=== PATIENT | male | born 1990 | race Two or more races ===

== ENCOUNTER 2019-01-28 14:06 | Emergency (ER) | payer SELFPAY ==
[~2019-01-28] VITALS: Ht 177.8 cm; Wt 83.9 kg
[2019-01-28 14:23] VITALS: BP 116/89
--- NOTE | 2019-01-28 14:23 | NUR ---
ED Nurse Note: Pt BIB by ambulance d/t ETOH
[2019-01-28 14:51] LABS: APPEARANCE,URINE CLEAR; BILIRUBIN, URINE NEGATIVE (NEGATIVE); COLOR,URINE PALE YELLOW; GLUCOSE, URINE (UA) NEGATIVE (NEGATIVE); KETONES,URINE NEGATIVE (NEGATIVE); LEUKOCYTE ESTERASE ,URINE NEGATIVE (NEGATIVE); NITRITE,URINE NEGATIVE (NEGATIVE); PH,URINE 6.5 (4.5-8.0); PROTEIN,URINE NEGATIVE (NEGATIVE); UROBILINOGEN,URINE NORMAL MG/DL (0.0-1.0)
--- NOTE | 2019-01-28 14:59 | NUR ---
ED Nurse Note: PA at bedside; pt refused IV insertion at this time. Pt uncooperative, CT on hold.
--- NOTE | 2019-01-28 15:45 | NUR ---
ED Nurse Note: Pt refused care, walked out of ED, security ran after patient but was unable to bring back.
--- NOTE | 2019-01-28 21:31 | Emergency Room Report ---
History of Present Illness General Chief Complaint: Alcohol Intoxication Source: Medical Record Present Illness HPI 28-year-old male brought in by paramedics due to alcohol intoxication. Patient is walking the hallway and does not cooperate with the staff. Patient appears intoxicated and under the influence of an unknown substance. However has stable vital signs. Patient refuses all treatment and is not a good historian to reply to any questions. Urine sample was positive for benzodiazepines. Patient keeps wandering the hallways and eloped. Had a facial contusion noted in the right maxilla however did not cooperate with the radiology staff in order to do the facial CT scan. Allergies: Coded Allergies: No Known Allergies (Unverified , 01/28/19) Patient History Past Medical History: see triage record Past Surgical History: unable to obtain Pertinent Family History: unable to obtain Reviewed Nursing Documentation: PMH: Agreed; PSxH: Agreed Nursing Documentation-PMH Past Medical History: No Stated History Review of Systems All Other Systems: negative except mentioned in HPI Physical Exam Vital Signs Date Time Temp Pulse Resp B/P (MAP) Pulse Ox O2 Delivery O2 Flow Rate FiO2 01/28/19 14:07 103 16 116/89 (98) 100 Room Air 01/28/19 14:23 98.0 Sp02 EP Interpretation: reviewed, normal General Appearance: moderate distress Head: normocephalic, atraumatic Eyes: bilateral eye normal inspection, bilateral eye PERRL Neck: normal inspection, full range of motion, supple Respiratory: normal inspection, chest non-tender, lungs clear, no wheezing Cardiovascular #1: normal inspection, regular rate, rhythm, no murmur Gastrointestinal: normal inspection, non tender, soft Genitourinary: no CVA tenderness Musculoskeletal: other - Facial ecchymosis noted on right maxilla Skin: normal color Lymphatic: no adenopathy Medical Decision Making PA Attestation All my diagnosis and treatment plans were reviewed ad discussed with my supervising physician Dr. Byers Diagnostic Impression: Primary Impression: Acute alcoholic intoxication ER Course 28-year-old male brought in by paramedics due to alcohol intoxication. Patient is walking the hallway and does not cooperate with the staff. Patient appears intoxicated and under the influence of an unknown substance. However has stable vital signs. Patient refuses all treatment and is not a good historian to reply to any questions. Urine sample was positive for benzodiazepines. Patient keeps wandering the hallways and eloped. Had a facial contusion noted in the right maxilla however did not cooperate with the radiology staff in order to do the facial CT scan. Ddx considered but are not limited to: generalized anxiety disorder, panic attack, depression with psycotic featurs, bipolar disorder, drug overdose Vital signs: are WNL, pt. is afebrile H&PE are most consistent with: Alcohol intoxication, eloped ORDERS: none required at this time, the diagnosis is clinical ED INTERVENTIONS: None required at this time. Patient eloped before any blood work and imaging Last Vital Signs Date Time Temp Pulse Resp B/P (MAP) Pulse Ox O2 Delivery O2 Flow Rate FiO2 01/28/19 16:35 Room Air 01/28/19 14:23 98.0 103 16 100 Disposition: ELOPED Condition: Stable Referrals: NOT CHOSEN IPA/,REFERRING (PCP) Prakash Chinchilla Jan 28, 2019 21:31
== END 2019-01-28 16:35 | disposition left against medical advice (07) ==
LOC: EDBD 14:06 → EMR 14:35
DX: F10.129 Alcohol abuse with intoxication, unspecified (principal); F13.10 Sedative, hypnotic or anxiolytic abuse, uncomplicated
CPT/HCPCS: 80307; 81001; 99282